=== PATIENT | male | born 1935 | race Caucasian/White ===

== ENCOUNTER 2019-07-21 11:03 | Inpatient (IN) | payer MEDICARE, OTHER ==
[~2019-07-21] VITALS: Ht 182.9 cm; Wt 95.2 kg
[~2019-07-21 11:03] MED LIST: ALLP100T PO; ASPI-875 PO; BUME0.5T5 PO; CLOP75TA PO; FURO20TA4 PO; HYDR-3583 PO; HYDR-3730 PO; IBUP-15 PO; KRIL1CAP18 PO; LEVO25TA2 PO; LISI-556 PO; METO-351 PO; MULT-35 PO; OMEG1CAP51 PO; PANT40SU PO; PRINIVIL; SIMV40TA4 PO; SMV20T PO; TMSL.4C; ZINC50TA49 PO
[2019-07-21] MEDS ORDERED: NS IV 500 ML 500 ML IV ONE (11:13)
--- NOTE | 2019-07-21 11:27 | ED Neurological Problem ---
General Chief Complaint: Neuro-Stroke Like Symptoms Stated Complaint: POSS STROKE Nursing Triage Note: Patient brought in by EMS with reports of R arm and R leg weakness and R sided facial droop with slurred speech. Per last known well time was 0230 on 07/21/2019 Nursing Sepsis Screen: No Definite Risk Source: patient, EMS Exam Limitations: clinical condition History of Present Illness Date Seen by Provider: Jul 21, 2019 Time Seen by Provider: 11:03 Initial Comments Here from home with report of concerns of stroke per the . Apparently he has right arm and leg weakness and difficulty with speech. Last known well time was 2:30 this morning when the states that he was speaking to her. Apparently had an episode of right-sided weakness last week and was seen in another facility and discharged home. Today, EMS reports that he does have decreased movement of the right arm and leg. She has not said anything meaningful to them other than a yes. No obvious facial droop noted or reported. No report of nausea, vomiting or diarrhea. He is incontinent of urine does have brief.m significantly limited due to patient unable to give information. Timing/Duration: other (last known well time 0230. We'll sometime this morning with symptoms.) Severity: moderate Associated Symptoms: No nausea/vomiting Allergies and Home Medications Allergies Coded Allergies: Iodinated Contrast Media (Unverified Allergy, Intermediate, PAIN, 02/02/08) Home Medications Allopurinol 100 Mg Tablet, 100 MG PO DAILY, (Reported) Aspirin 81 Mg Tablet.dr, 81 MG PO DAILY, (Reported) Bumetanide 0.5 Mg Tablet, 0.5 MG PO DAILY, (Reported) Hydrocodone/Acetaminophen 1 Each Tablet, 1-2 EACH PO Q4H Prescribed by: ANURAG MACK on 06/17/16 1002 Krill/Om-3/Dha/Epa/Phospho/Ast 1 Each Capsule, 1 EACH PO DAILY, (Reported) Levothyroxine Sodium 25 Mcg Tablet, 25 MCG PO DAILY, (Reported) Metoprolol Succinate 25 Mg Tab.er.24h, 25 MG PO DAILY, (Reported) Multivitamin 1 Each Tablet, 1 EACH PO DAILY, (Reported) Patient Home Medication List Home Medication List Reviewed: Yes Review of Systems Review of Systems Constitutional: No chills, No fever; weakness Respiratory: no symptoms reported Cardiovascular: no symptoms reported Musculoskeletal: see HPI, muscle weakness; No neck pain Psychiatric/Neurological: See HPI, Cognitive Dysfunction Unable to complete review of systems due to her underlying medical problems and current situation. Past Jsjjkgt-Dtcpbx-Lxrjtv Hx Past Med/Social Hx: Reviewed Nursing Past Med/Soc Hx Patient Social History Alcohol Use: Denies Use Recreational Drug Use: No Recent Foreign Travel: No Contact w/Someone Who Travel: No Recent Infectious Disease Expo: No Recent Hopitalizations: Yes (PREVIOUSLY LISTED) Immunizations Up To Date Tetanus Booster (TDap): Unknown Date of Pneumonia Vaccine: Aug 27, 2015 Past Medical History Surgeries: Yes (BACK, HEMORROIDECTOMY, MANY SKIN CANCERS REMOVED, ESWL MULTIPLE) Respiratory: No Cardiac: Yes (STENT) Neurological: Yes Reproductive Disorders: No Sexually Transmitted Disease: No HIV/AIDS: No Kidney Stones Gastrointestinal: Yes Chronic Constipation Musculoskeletal: Yes Degenerate Disk Disease, Arthritis, Chronic Back Pain Endocrine: Yes Loss of Vision: Bilateral Hearing Impairment: Denies Cancer: Yes Skin Psychosocial: No Integumentary: Yes (MULTIPLE SKIN CANCERS) Blood Disorders: No Adverse Reaction/Blood Tranf: No Family Medical History Reviewed Nursing Family Hx Physical Exam Vital Signs Vital Signs - First Documented 07/21/19 11:07 Temp 36.4 Pulse 79 Resp 22 B/P (MAP) 101/56 (71) Pulse Ox 94 O2 Delivery Room Air Capillary Refill : Less Than 3 Seconds Height, Weight, BMI Height: 5'11.00" Weight: 231lbs. 3.0oz. 104.918255oc; 34.00 BMI Method: General Appearance: WD/WN, no apparent distress HEENT: PERRL/EOMI, pharynx normal Neck: full range of motion Respiratory: lungs clear, normal breath sounds Cardiovascular: regular rate, rhythm, no murmur Gastrointestinal: non tender, soft Back: no CVA tenderness Extremities: No pedal edema, No swelling; other (decreased movement apparently of the right arm and leg. He is able to hold the left arm. Exam is significantly limited due to patient's compliance and understanding.) Neurologic/Psychiatric: motor weakness (right upper and lower extremity), disoriented x 3 Coordination/Gait: other (does open mouth and follow finger movement with eyes in all quadrants. Does not follow other commands.) Motor/Sensory: weak motor strength RUE, weak motor strength RLE, other (is able to hold left arm up when placed up) Skin: normal color, warm/dry Focused Exam Lactate Level 07/21/19 11:20: Lactic Acid Level 1.46 Lactic Acid Level Laboratory Tests Test 07/21/19 11:20 Lactic Acid Level 1.46 MMOL/L (0.50-2.00) Progress/Results/Core Measures Results/Orders Lab Results Laboratory Tests Test 07/21/19 11:20 Range/Units White Blood Count 9.7 4.3-11.0 10^3/uL Red Blood Count 4.72 4.35-5.85 10^6/uL Hemoglobin 14.0 13.3-17.7 G/DL Hematocrit 43 40-54 % Mean Corpuscular Volume 90 80-99 FL Mean Corpuscular Hemoglobin 30 25-34 PG Mean Corpuscular Hemoglobin Concent 33 32-36 G/DL Red Cell Distribution Width 15.0 H 10.0-14.5 % Platelet Count 334 130-400 10^3/uL Mean Platelet Volume 9.8 7.4-10.4 FL Neutrophils (%) (Auto) 76 H 42-75 % Lymphocytes (%) (Auto) 17 12-44 % Monocytes (%) (Auto) 7 0-12 % Eosinophils (%) (Auto) 0 0-10 % Basophils (%) (Auto) 0 0-10 % Neutrophils # (Auto) 7.4 1.8-7.8 X 10^3 Lymphocytes # (Auto) 1.6 1.0-4.0 X 10^3 Monocytes # (Auto) 0.7 0.0-1.0 X 10^3 Eosinophils # (Auto) 0.0 0.0-0.3 10^3/uL Basophils # (Auto) 0.0 0.0-0.1 10^3/uL Prothrombin Time 13.1 12.2-14.7 SEC INR Comment 1.0 0.8-1.4 Activated Partial Thromboplast Time 21 L 24-35 SEC D-Dimer 1.64 H 0.00-0.49 UG/ML Sodium Level 136 135-145 MMOL/L Potassium Level 5.1 H 3.6-5.0 MMOL/L Chloride Level 105 98-107 MMOL/L Carbon Dioxide Level 20 L 21-32 MMOL/L Anion Gap 11 5-14 MMOL/L Blood Urea Nitrogen 15 7-18 MG/DL Creatinine 1.41 H 0.60-1.30 MG/DL Estimat Glomerular Filtration Rate 48 BUN/Creatinine Ratio 11 Glucose Level 99 70-105 MG/DL Lactic Acid Level 1.46 0.50-2.00 MMOL/L Calcium Level 8.9 8.5-10.1 MG/DL Corrected Calcium 9.5 8.5-10.1 MG/DL Total Bilirubin 0.5 0.1-1.0 MG/DL Aspartate Amino Transf (AST/SGOT) 22 5-34 U/L Alanine Aminotransferase (ALT/SGPT) 9 0-55 U/L Alkaline Phosphatase 118 40-136 U/L Troponin I < 0.028 <0.028 NG/ML Total Protein 6.4 6.4-8.2 GM/DL Albumin 3.2 3.2-4.5 GM/DL TSH Coles Testing 2.81 0.35-4.94 UIU/ML Smear Scan YES My Orders Orders - CHAD LI MD Cbc With Automated Diff (07/21/19 11:13) Protime With Inr (07/21/19 11:13) Partial Thromboplastin Time (07/21/19 11:13) Comprehensive Metabolic Panel (07/21/19 11:13) Fibrin Degradation Products (07/21/19 11:13) Troponin I (07/21/19 11:13) Ua Culture If Indicated (07/21/19 11:13) Chest 1 View, Ap/Pa Only (07/21/19 11:13) Catheter(Urinary) Insert & Ass 03,15 (07/21/19 11:13) Ekg Tracing (07/21/19 11:13) Nothing By Mouth (07/21/19 Dinner) Accucheck Stat ONCE (07/21/19 11:13) Ed Iv/Invasive Line Start (07/21/19 11:13) Ed Iv/Invasive Line Start (07/21/19 11:13) Vital Signs Stroke Patient Q15M (07/21/19 11:13) Ct Head Wo-R/O Stroke (07/21/19 11:13) O2 (07/21/19 11:13) Intake & Output 06,14,22 (07/21/19 11:13) Monitor-Rhythm Ecg Trace Only (07/21/19 11:13) Dysphagia Screening Tool (07/21/19 11:13) Lipid Panel (07/22/19 06:00) Lactic Acid Analyzer (07/21/19 11:13) Blood Culture (07/21/19 11:13) I-Stat Bedside Testing (07/21/19 11:13) Ns Iv 500 Ml (Sodium Chloride 0.9%) (07/21/19 11:13) Thyroid Analyzer (07/21/19 11:30) Medications Given in ED Current Medications Medications Dose Ordered Sig/Rupert Route Start Time Stop Time Status Last Admin Dose Admin Sodium Chloride 500 ml @ 0 mls/hr Q0M ONCE IV 07/21/19 11:13 07/21/19 11:16 DC 07/21/19 11:26 0 MLS/HR Vital Signs/I&O 07/21/19 11:07 Temp 36.4 Pulse 79 Resp 22 B/P (MAP) 101/56 (71) Pulse Ox 94 O2 Delivery Room Air Blood Pressure Mean: 71 Progress Progress Note : Progress Note Seen and evaluated. Stroke protocol initiated. I have added blood cultures and lactic acid is patient had blood pressure in the 90 systolic. No fever and no report of illness. He did have workup on Tuesday of this week (5 days ago) that apparently was negative for urinary tract infection. We will give normal saline 500 mL bolus. We are unable to do CT scan with contrast due to contrast allergy as well as elevated serum creatinine. reports she is having increasing difficulty at home with him and they are considering group home. Previously with Dr. Shukla but does not have a physician currently as he has closed his practice and left knee area. If he does get admitted to group home, she is considering local physician, likely Dr. Connell group. 1342: I did discuss the case with Dr. Burton. He accepts patient for admission, inpatient status. Patient clearly outside of the TPA window with last known well time at 2:30 AM. We will continue stroke evaluation given findings on CT of acute on chronic stroke in the left frontal region. Patient remains alert. He has not accomplished dysphagia screen. We're unable to fully elucidate stroke scale given his level of cooperation. I did discuss with the about his CODE STATUS and she states that he is DO NOT RESUSCITATE. She also does not think that they would pursue any heroic measures but admission and further evaluation with possibility of group home placement are reasonable for her. Admit, inpatient status. Initial ECG Impression Date: Jul 21, 2019 Initial ECG Impression Time: 11:11 Initial ECG Rate: 76 Initial ECG Rhythm: Normal Sinus Initial ECG Comparisson: Changed (424/13 without left anterior fascicular block.) Comment Sinus rhythm with first degree AV block. Left anterior fascicular block. Left axis deviation. No evidence of ST elevation NC. Interpreted by me. Diagnostic Imaging Diagonstic Imaging: CT Plain Films/CT/US/NM/MRI: head Comments NAME: SHAHZAD CALLEJAS [facility] REC#: [id number] PT STATUS: REG ER : 1935 PHYSICIAN: CHAD LI MD ADMIT DATE: 07/21/19/ER Signed Date of Exam: 07/21/19 CT HEAD WO-R/O STROKE PROCEDURE: CT head wo r/o stroke. TECHNIQUE: Multiple contiguous axial images were obtained through the brain without the use of intravenous contrast. Auto Exposure Controls were utilized during the CT exam to meet ALARA standards for radiation dose reduction. INDICATION: Right-sided weakness. Evaluate for stroke. History of prior stroke. COMPARISON: None. FINDINGS: An area of decreased attenuation with loss of tran-white matter differentiation is seen in the left anterior lateral frontal lobe. The ventricles and cortical sulci are prominent. No evidence of hemorrhage or mass. No midline shift. The basilar cisterns are patent. Retained secretions are seen in the right maxillary sinus with dense components. There is thickening of the bilateral maxillary sinus goodwin. The mastoid air cells are well pneumatized. The scalp and calvarium are intact. The globes and orbits are unremarkable. IMPRESSION: 1. Region of age indeterminant ischemic changes in the left anterolateral frontal lobe. This is favored to represent acute on chronic ischemia. Consider MRI brain to further evaluate. 2. Chronic sinusitis involving the maxillary sinuses. Findings were discussed with Dr. Chad Li at 12:06 p.m. on 07/21/[address] Fanny Kolb. Dictated by: Dictated on workstation # [id number] Dict: 07/21/19 1200 Trans: 07/21/19 1212 Interpreted by: FANNY KOLB DO Electronically signed by: FANNY KOLB DO 07/21/19 1212 Diagonstic Imaging: Xray Plain Films/CT/US/NM/MRI: chest Comments NAME: SHAHZAD CALLEJAS [facility] REC#: [id number] PT STATUS: REG ER : 1935 PHYSICIAN: CHAD LI MD ADMIT DATE: 07/21/19/ER Signed Date of Exam: 07/21/19 CHEST 1 VIEW, AP/PA ONLY Patient History: Right-sided weakness. Stroke.. Technique: Single frontal view of the chest Comparison: 01/24/2013 FINDINGS: No focal consolidation is seen. No large pleural effusion or pneumothorax is seen. The cardiomediastinal silhouette is normal in size and contour. No acute osseous abnormality is seen. IMPRESSION: 1. No acute pleuroparenchymal process. Dictated by: Dictated on workstation # [id number] Dict: 07/21/19 1212 Trans: 07/21/191212 Interpreted by: FANNY KOLB DO Electronically signed by: FANNY KOLB DO 07/21/19 1213 Departure Communication (Admissions) Time/Spoke to Admitting Phy: 13:42 Impression Primary Impression: Ischemic stroke of frontal lobe Disposition: ADMITTED INPATIENT Condition: Stable Admissions Decision to Admit Reason: Admit from ER (General) Decision to Admit/Date: Jul 21, 2019 Time/Decision to Admit Time: 13:42 Departure-Patient Inst. Referrals: JV SHUKLA MD (PCP/Family) Primary Care Physician CHAD LI MD Jul 21, 2019 11:26
[2019-07-21 11:30] LABS: BASOPHILS % (AUTO) 0 % (0-10); EOSINOPHILS % (AUTO) 0 % (0-10); HEMATOCRIT 43 % (40-54); LYMPHOCYTES # (AUTO) 1.6 X 10^3 (1.0-4.0); LYMPHOCYTES % (AUTO) 17 % (12-44); MEAN CORPUSCULAR HEMOGLOBIN 30 PG (25-34); MEAN CORPUSCULAR HGB CONC 33 G/DL (32-36); MEAN CORPUSCULAR VOLUME 90 FL (80-99); MEAN PLATELET VOLUME 9.8 FL (7.4-10.4); MONOCYTES # (AUTO) 0.7 X 10^3 (0.0-1.0); MONOCYTES % (AUTO) 7 % (0-12); NEUTROPHILS # (AUTO) 7.4 X 10^3 (1.8-7.8); NEUTROPHILS % (AUTO) 76 % (42-75); PLATELET COUNT 334 10^3/uL (130-400); WHITE BLOOD COUNT 9.7 10^3/uL (4.3-11.0)
[2019-07-21 11:45] LABS: PROTHROMBIN TIME PATIENT 13.1 SEC (12.2-14.7)
[2019-07-21 11:52] LABS: ALANINE AMINOTRANSFERASE 9 U/L (0-55); ALBUMIN 3.2 GM/DL (3.2-4.5); ALKALINE PHOSPHATASE 118 U/L (40-136); BILIRUBIN,TOTAL 0.5 MG/DL (0.1-1.0); BUN/CREATININE RATIO 11; CALCIUM 8.9 MG/DL (8.5-10.1); CARBON DIOXIDE 20 MMOL/L (21-32); CHLORIDE 105 MMOL/L (98-107); CREATININE SERUM 1.41 MG/DL (0.60-1.30); GFR ESTIMATED 48; GLUCOSE 99 MG/DL (70-105); POTASSIUM 5.1 MMOL/L (3.6-5.0); SODIUM 136 MMOL/L (135-145); TOTAL PROTEIN 6.4 GM/DL (6.4-8.2)
[2019-07-21 11:59] LABS: FIBRIN DEGRADATION PRODUCTS 1.64 UG/ML (0.00-0.49)
[2019-07-21 12:09] LABS: SMEAR SCAN COMMENT YES
--- NOTE | 2019-07-21 12:09 | Diagnostic Imaging Report ---
PROCEDURE: CT head wo r/o stroke. TECHNIQUE: Multiple contiguous axial images were obtained through the brain without the use of intravenous contrast. Auto Exposure Controls were utilized during the CT exam to meet ALARA standards for radiation dose reduction. INDICATION: Right-sided weakness. Evaluate for stroke. History of prior stroke. COMPARISON: None. FINDINGS: An area of decreased attenuation with loss of tran-white matter differentiation is seen in the left anterior lateral frontal lobe. The ventricles and cortical sulci are prominent. No evidence of hemorrhage or mass. No midline shift. The basilar cisterns are patent. Retained secretions are seen in the right maxillary sinus with dense components. There is thickening of the bilateral maxillary sinus goodwin. The mastoid air cells are well pneumatized. The scalp and calvarium are intact. The globes and orbits are unremarkable. IMPRESSION: 1. Region of age indeterminant ischemic changes in the left anterolateral frontal lobe. This is favored to represent acute on chronic ischemia. Consider MRI brain to further evaluate. 2. Chronic sinusitis involving the maxillary sinuses. Findings were discussed with Dr. Chad See at 12:06 p.m. on 07/21/[address] Keyur Kolb. Dictated by: Dictated on workstation # [id number]
--- NOTE | 2019-07-21 12:14 | Diagnostic Imaging Report ---
Patient History: Right-sided weakness. Stroke.. Technique: Single frontal view of the chest Comparison: 01/24/2013 FINDINGS: No focal consolidation is seen. No large pleural effusion or pneumothorax is seen. The cardiomediastinal silhouette is normal in size and contour. No acute osseous abnormality is seen. IMPRESSION: 1. No acute pleuroparenchymal process. Dictated by: Dictated on workstation # [id number]
--- NOTE | 2019-07-21 14:45 | NUR ---
SHAHZAD CALLEJAS admitted to room 413, with an admitting diagnosis of ISCHEMIC STROKE , on 07/21/19 from [facility] via [facility]ULANCE], accompanied by PERSONNEL AND . SHAHZAD CALLEJAS introduced to surroundings, call light, bed controls, phone, TV, temperature control, lights, meal times, smoking policy, visitor policy, side rail policy, bathrooms and showers.SHAHZAD CALLEJAS verbalizes understanding that [facility] is not responsible for the loss or damage to any personal effects or valuables that are kept in the patients posession during their hospitalization. The following Patient Care Plans were discussed with the PATIENT AND FAMILY: Discharge Planning, CARE PLAN,DIET, and PAIN. SHAHZAD CALELJAS verbalizes understanding of Interdisciplinary Patient Education.
--- NOTE | 2019-07-21 14:45 | NUR ---
PATIENT RECEIVED IN ROOM 415. REPORT GIVEN TO RN BY TONI RAYMUNDO ED
[2019-07-21] MEDS: ASPIRIN E.C. 325 MG (ECOTRIN) TABLET PO SCH (14:59)
[2019-07-21] MEDS ORDERED: ONDANSETRON 4 MG/2 ML (SDV) Z0FRAN IV PRN (15:00)
[2019-07-21] MEDS ORDERED: ACETAMINOPHEN 325 MG TABLET PO PRN (15:15)
[2019-07-21] MEDS: NS IV 1000 ML 1,000 ML IV SCH (15:34)
[2019-07-21 16:00] VITALS: BP 146/93
[2019-07-21 16:07] VITALS: BP 130/82
[2019-07-21] MEDS ORDERED: RT-ALBUTEROL SULF 2.5 MG/3 ML PRE-MIX VIAL INH PRN (16:30)
[2019-07-21] MEDS ORDERED: FLU QUADRIvalent (5+ YOA) 2019-2020 (AFLURIA) 0.5 ML IM ONE (17:00)
[2019-07-21 17:13] VITALS: BP 146/93
[2019-07-21] MEDS ORDERED: hydrALAZINE (APESOLINE) 20 MG/ML VIAL IV PRN (19:00)
[2019-07-21 19:31] VITALS: BP 118/80
[2019-07-21] MEDS: ENOXAPARIN 40 MG/0.4 ML (LOVENOX) SYR SC SCH (23:28)
[2019-07-22] VITALS: BP 141/80
[2019-07-22 03:57] VITALS: BP 105/70
[2019-07-22 06:31] LABS: BASOPHILS % (AUTO) 0 % (0-10); EOSINOPHILS % (AUTO) 0 % (0-10); HEMATOCRIT 43 % (40-54); HEMOGLOBIN 13.8 G/DL (13.3-17.7); LYMPHOCYTES # (AUTO) 1.4 X 10^3 (1.0-4.0); LYMPHOCYTES % (AUTO) 10 % (12-44); MEAN CORPUSCULAR HEMOGLOBIN 29 PG (25-34); MEAN CORPUSCULAR HGB CONC 33 G/DL (32-36); MEAN CORPUSCULAR VOLUME 90 FL (80-99); MEAN PLATELET VOLUME 9.7 FL (7.4-10.4); MONOCYTES # (AUTO) 1.2 X 10^3 (0.0-1.0); MONOCYTES % (AUTO) 9 % (0-12); NEUTROPHILS # (AUTO) 10.8 X 10^3 (1.8-7.8); NEUTROPHILS % (AUTO) 81 % (42-75); PLATELET COUNT 330 10^3/uL (130-400); RED CELL DISTRIBUTION WIDTH 14.5 % (10.0-14.5); WHITE BLOOD COUNT 13.4 10^3/uL (4.3-11.0)
[2019-07-22 06:51] LABS: ALBUMIN 3.1 GM/DL (3.2-4.5); BILIRUBIN,TOTAL 0.6 MG/DL (0.1-1.0); CALCIUM 9.1 MG/DL (8.5-10.1); CREATININE SERUM 1.36 MG/DL (0.60-1.30); POTASSIUM 4.8 MMOL/L (3.6-5.0); TOTAL PROTEIN 6.2 GM/DL (6.4-8.2)
[2019-07-22] MEDS: ASPIRIN E.C. 325 MG (ECOTRIN) TABLET PO SCH ×2 (08:18→16:16)
[2019-07-22] MEDS: NS IV 1000 ML 1,000 ML IV SCH (12:17)
--- NOTE | 2019-07-22 13:13 | History & Physical-Hospitalist ---
History of Present Illness HPI/Chief Complaint Dave Ashley is an 84-year-old male with past medical history of frontal CVA who presented with weakness. Due to his clinical condition he is unable to provide an accurate history. His and children are present to assist. His states that he was in his normal state of health a couple weeks ago. He then began having difficulty getting around and was feeling more weak. He was evaluated in an outside emergency room and discharged. He became more weak over the past 24 hours and he was brought to the emergency room. He was also very lethargic and minimally responsive at that time. Evaluation in the emergency room determined that he had an acute ischemic stroke in the same region as his previous stroke. Source: patient, family Exam Limitations: clinical condition Date Seen 07/22/19 Time Seen by a Provider: 11:30 Attending Physician Arely Collado MD PCP No,Local Physician Referring Physician Date of Admission Jul 21, 2019 at 13:57 Home Medications & Allergies Home Medications Reviewed patient Home Medication Reconciliation performed by pharmacy medication reconciliations soils technician and/or nursing. Patients Allergies have been reviewed. Allergies Allergies Coded Allergies Iodinated Contrast Media (Unverified Allergy, Intermediate, PAIN, 02/02/08) Past Icsllaq-Esqbcw-Znrmno Hx Past Med/Social Hx: Reviewed Nursing Past Med/Soc Hx Patient Social History Alcohol Use: Denies Use Recreational Drug Use: No Smoking Status: Never a Smoker Physical Abuse Screen: No Sexual Abuse: No Recent Foreign Travel: No Contact w/other who traveled: No Recent Hopitalizations: No Recent Infectious Disease Expo: No Immunizations Up To Date Tetanus Booster (TDap): Unknown Pediatric: No Date of Pneumonia Vaccine: Jul 21, 2017 Seasonal Allergies Seasonal Allergies: No Past Medical History Currently Using CPAP: No Currently Using BIPAP: No Reproductive: No Sexually Transmitted Disease: No HIV/AIDS: No Genitourinary: Prostate Problems Gastrointestinal: Chronic Constipation Musculoskeletal: Gout Loss of Vision: Bilateral Hearing Impairment: Hard of Hearing Cancer: Skin Did You Recieve Any Treatments: Yes What Type of Treatment Did You: Surgical Intervention History of Blood Disorders: No Adverse Reaction to Blood Hwang: No Family History Reviewed Nursing Family Hx Cardiovascular disease 19 FATHER, Onset:60 years & older G8 BROTHER, Onset:40's - 50 Colon cancer 19 MOTHER, Onset:60 years & older Review of Systems Constitutional: see HPI, weakness Physical Exam Physical Exam Vital Signs Vital Signs - First Documented 07/21/19 11:07 Temp 36.4 Pulse 79 Resp 22 B/P (MAP) 101/56 (71) Pulse Ox 94 O2 Delivery Room Air Capillary Refill : Less Than 3 SecondsLess Than 3 Seconds Height, Weight, BMI Height: 5'11.00" Weight: 231lbs. 3.0oz. 104.862169mp; 28.45 BMI Method: General Appearance: No Apparent Distress, WD/WN, Obese HEENT: PERRL/EOMI, Pharynx Normal Neck: Normal Inspection, Supple Respiratory: Lungs Clear, Normal Breath Sounds, No Respiratory Distress Cardiovascular: Regular Rate, Rhythm, No Edema, No Murmur Gastrointestinal: Normal Bowel Sounds, Non Tender, Soft Neurologic/Psychiatric: Alert, Disoriented, Motor Weakness, Other (dysphasia) Skin: Normal Color, Warm/Dry Results Results/Procedures Labs Laboratory Tests 07/21/19 11:20 07/22/19 05:50 Patient resulted labs reviewed. Imaging: Reviewed Imaging Report Assessment/Plan Admission Diagnosis Acute ischemic stroke Admission Status: Inpatient Order (span 2 midnights) Reason for Inpatient Admission: Acute ischemic stroke requiring further evaluation and therapies Assessment and Plan Acute ischemic stroke of the frontal lobe History of cerebrovascular accident Hyperlipidemia CT head revealed acute on chronic ischemic stroke Outside window for TPA Continue aspirin Begin statin Consider TTE and carotid ultrasound tomorrow Palliative consult tomorrow PT/OT/ST instructional support services director consult for placement CKD Creatinine appears to be near baseline Continue to monitor DVT prophylaxis: Lovenox Diagnosis/Problems Diagnosis/Problems (1) Ischemic stroke of frontal lobe Status: Acute (2) History of cerebrovascular accident Status: Chronic (3) CKD (chronic kidney disease) Status: Chronic (4) HLD (hyperlipidemia) Status: Chronic (5) Leukocytosis Status: Acute Qualifiers: Leukocytosis type: leukemoid reaction Qualified Codes: D72.823 - Leukemoid reaction Clinical Quality Measures DVT/VTE Risk/Contraindication: Risk Factor Score Per Nursin RFS Level Per Nursing on Admit: 4+=Very High Stroke: Date of last known well: Jul 16, 2019 ARELY COLLADO MD Jul 22, 2019 13:13
[2019-07-22] MEDS ORDERED: BISACODYL 10 MG SUPP (DULCOLAX) PR PRN (13:15)
[2019-07-22] MEDS ORDERED: ONDANSETRON 4 MG (ZOFRAN) ORAL DISSOLVE TAB PO PRN (13:15)
[2019-07-22] MEDS ORDERED: MELATONIN 3 MG TABLET PO PRN (13:15)
[2019-07-22] MEDS ORDERED: POLYETHYLENE GLYCOL 17 GM (MIRALAX) PACK PO PRN (13:15)
[2019-07-22 16:00] VITALS: BP 131/88
--- NOTE | 2019-07-22 16:18 | NUR ---
PT WAS CAUGHT UP ON ORAL MEDS AFTER DYSPHAGIA SCREENING WAS DONE
[2019-07-22 20:00] VITALS: BP 140/88
[2019-07-22] MEDS: SENNA W/DOCUSATE (SENOKOT S) TABLET PO SCH ×2 (20:28→20:35)
[2019-07-22] MEDS: DOCUSATE SODIUM 100 MG (COLACE) CAP PO SCH ×2 (20:29→20:35)
[2019-07-22] MEDS: ENOXAPARIN 40 MG/0.4 ML (LOVENOX) SYR SC SCH (20:29)
[2019-07-22] MEDS: NYSTATIN OINTMENT 30 GM TUBE TOP SCH (20:29)
[2019-07-22 23:45] VITALS: BP 122/84
[2019-07-23 04:00] VITALS: BP 141/84
[2019-07-23] MEDS: LEVOTHYROXINE 25 MCG (LEVOTHROID) TAB PO SCH (05:43)
[2019-07-23] MEDS: NS IV 1000 ML 1,000 ML IV SCH (07:52)
[2019-07-23 08:27] VITALS: BP_SYST 110; BP_SYST 121; BP_DIAS 60; BP_DIAS 76
[2019-07-23] MEDS: SENNA W/DOCUSATE (SENOKOT S) TABLET PO SCH ×2 (08:47→23:30)
[2019-07-23] MEDS: ASPIRIN E.C. 325 MG (ECOTRIN) TABLET PO SCH (08:47)
[2019-07-23] MEDS: DOCUSATE SODIUM 100 MG (COLACE) CAP PO SCH ×2 (08:52→23:28)
--- NOTE | 2019-07-23 08:53 | NUR ---
PATIENT SPIT COLACE OUT.
[2019-07-23] MEDS: NYSTATIN OINTMENT 30 GM TUBE TOP SCH ×2 (09:18→23:28)
--- NOTE | 2019-07-23 10:00 | Physical Therapy Evaluation ---
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 Reviewed History: Yes Social History unknown at this time; pt unable to verbalize and no family present. Prior Prior Level of Function SCALE: Activities may be completed with or without assistive devices. 4-Zyjdmsgsid-wxfnpfp completes the activity by him/herself with no assistance from a helper. 5-Set-up or Clean-up Assistance-helper sets up or cleans up; patient completes activity. [place] assists only prior to or following the activity. 4-Supervision or Touching Assistance-helper provides verbal cues and/or touching/steadying and/or contact guard assistance as patient completes activity. Assistance may be provided throughout the activity or intermittently. 3-Partial/Moderate Assistance-helper does LESS THAN HALF the effort. [place] lifts, holds or supports trunk or limbs, but provides less than half the effort. 2-Substantial/Maximal Assistance-helper does MORE THAN HALF the effort. [place] lifts or holds trunk or limbs and provides more than half the effort. 9-Sxvenjsei-etxgoz does ALL the effort. Patient does none of the effort to complete the activity. Or, the assistance of 2 or more helpers is required for the patient to complete the activity. If activity was not attempted, code reason: 7-Patient Refused. 9-Not Applicable-not attempted and the patient did not perform the activity before the current illness, exacerbation or injury. 10-Not Attempted due to Environmental Limitations-(lack of equipment, weather restraints, etc.). 88-Not Attempted due to Medical Conditions or Safety Concerns. unknown PT Evaluation-Current Subjective Pt does not verbalize except to grunt a few times; he does make eye contact; follows cues 50% of the time; he was cooperative and allowed activity Objective Attachments: IV ROM/Strength ROM Lower Extremities WFL AAROM Strength Lower Extremities functional to stand but unable to specifically test Integumentary/Posture Integumentary pt has a bandage on low back. refer to nursing notes for full assessment. Posture symmetrical Neuromuscular (Tone, Coordination, Reflexes) unable to fully assess at this time Sensory Vision: Functional Hearing: Functional Transfers Roll Left to Right (QC): 2 Sit to Lying (QC): 2 Lying to Sitting/Side of Bed(Q: 2 Sit to Stand (QC): 2 assist o f 2 to transfer supine to/from sit; nel tof 2 to stand using a FWW. dependent for scooting in bed; pt does not initiate activity and has some difficulty following verbal cues but does follow tactile cues and able to participate with transers and standing. In standing, lacks full hip extension, difficulty keeping right hand on the walker; stood for 10-15 seconds x 2 with assist of 2 for safety. Balance Sitting Static: Fair Sitting Dynamic: Fair Standing Static: Poor Standing Dynamic: Poor Treatment Transfer to sit EOB; sat EOB several minutes; pt tends to lean left but does not fall over; nor does he right himself. Follows tactile cues for sit to stand activity. Pt in bed post treatment with heels elevated; right arm supported; bed alarm activated and needs met. . Assessment/Needs Post CVA with right side affected. Pt does not verbalize but does make eye contact; limited ability to follow verbal cues but does follow tactile cues and allows PT eval and follows treatment. Pt will benefit from skilled PT to address functional mobility and progress activity as he is able. Rehab Potential: Guarded PT Senior Living Goals Senior Living Goals PT Pattern Changer Goals Time Frame: Jul 30, 2019 Sit to Lying (QC): 3 Lying-Sitting on Side/Bed(QC): 3 Sit to Stand (QC): 3 Roll Left to Right (QC): 3 Chair/Dol-sa-Kguuf Xfer(QC): 3 Walk 10 feet (QC): 3 Walk 50ft with 2 Turns (QC): 3 Gait Assistive Device: FWW PT Plan Problem List Problem List: Activity Tolerance, Functional Strength, Safety, Balance, Gait, Transfer, Bed Mobility Treatment/Plan Treatment Plan: Continue Plan of Care Treatment Plan: Bed Mobility, Education, Functional Activity Jennifer, Functional Strength, Gait, Safety, Therapeutic Exercise, Transfers Treatment Duration: Jul 30, 2019 Frequency: 6 times per week Estimated Hrs Per Day: .5 hour per day Patient and/or Family Agrees t: Yes Safety Risks/Education Patient Education: Safety Issues Teaching Recipient: Patient Teaching Methods: Demonstration Response to Teaching: Reinforcement Needed Discharge Recommendations Therapy Discharge Recommendati: Post Acute PT Time/GCodes Time In: 915 Time Out: 940 Total Billed Treatment Time: 25 Total Billed Treatment visit EVM 15 FA 10 VICTOR MANUEL BROWN PT Jul 23, 2019 10:00
--- NOTE | 2019-07-23 10:02 | Occupational Therapy Eval ---
OT Evaluation-General/PLF Medical Diagnosis Admission Date Jul 21, 2019 at 13:57 Medical Diagnosis: Acute ischemic stroke of frontal lobe Onset Date: Jul 21, 2019 Therapy Diagnosis Therapy Diagnosis: impaired ADLs and functional mobility Height/Weight Height (Feet): 5 Height (Inches): 11.00 Weight (Pounds): 231 Weight (Ounces): 3.0 Precautions Precautions/Isolations: Aspiration, Fall Prevention, Standard Precautions Safety Interventions: Bed Exit Alarm, Reorient-PRN Referral Physician: Josephine Referral Reason: Activity Tolerance, Self Care, Evaluation/Treatment, Strengthening/ROM Medical History Pertinent Medical History: CVA Additional Medical History hyperlipidemia, chronic kidney disease, leukocytosis Current History Per H&P: "Dave Ashley is an 84-year-old male with past medical history of frontal CVA who presented with weakness. Due to his clinical condition he is unable to provide an accurate history. His and children are present to assist. His states that he was in his normal state of health a couple weeks ago. He then began having difficulty getting around and was feeling more weak. He was evaluated in an outside emergency room and discharged. He became more weak over the past 24 hours and he was brought to the emergency room. He was also very lethargic and minimally responsive at that time. Evaluation in the emergency room determined that he had an acute ischemic stroke in the same region as his previous stroke." Reviewed History: Yes Social History unknown ADL-Prior Level of Function SCALE: Activities may be completed with or without assistive devices. 1-Motkhywjil-bwsesbs completes the activity by him/herself with no assistance from a helper. 5-Set-up or Clean-up Assistance-helper sets up or cleans up; patient completes activity. [place] assists only prior to or following the activity. 4-Supervision or Touching Assistance-helper provides verbal cues and/or touching/steadying and/or contact guard assistance as patient completes activity. Assistance may be provided throughout the activity or intermittently. 3-Partial/Moderate Assistance-helper does LESS THAN HALF the effort. [place] lifts, holds or supports trunk or limbs, but provides less than half the effort. 2-Substantial/Maximal Assistance-helper does MORE THAN HALF the effort. [place] lifts or holds trunk or limbs and provides more than half the effort. 1-Vldevgsyw-maeazv does ALL the effort. Patient does none of the effort to complete the activity. Or, the assistance of 2 or more helpers is required for the patient to complete the activity. If activity was not attempted, code reason: 7-Patient Refused. 9-Not Applicable-not attempted and the patient did not perform the activity before the current illness, exacerbation or injury. 10-Not Attempted due to Environmental Limitations-(lack of equipment, weather restraints, etc.). 88-Not Attempted due to Medical Conditions or Safety Concerns. ADL PLOF Comments unknown OT Current Status Subjective Pt laying in bed at start of session. OT explained game plan to pt, pt nodded in agreement. Pt unable to verbalize pain this session. Mental Status/Objective Patient Orientation: Unable to Assess OT repeated questions/instructions multiple times with verbal and tactile cues. Pt would nod in agreement, or state simple words to answer questions/verbalize understanding. Attachments: IV, SCD's Current Upper Extremity ROM RUE flaccid, PROM WFL LUE - pt able to flex shoulder to approximately 160 degrees with OT guiding pt's arms in the correct movement secondary to pt's difficulty understanding inst ruction. Pt able to lightly squeeze left hand with tactile cue from OT. Upper Extremity Coordination unable to assess secondary to aphasia and flaccidity in RUE. Upper Extremity Sensation unable to assess secondary to aphasia Upper Extremity Strength RUE 0/5 MMT LUE 2+/5 MMT ADL-Treatment Oral Hygiene (QC): 2 (OT placed toothbrush with toothpaste in pt's LUE. With prompting and demo of task, pt was able to bring toothbrush to his mouth. Pt then grinded his teeth against the toothbrush, he did not move LUE in a "brushing" motion. OT assisted pt with completing task.) Other Treatments Throughout session, pt required max verbal/tactile cues in order to understand instruction/questions. Pt stated simple words and grunted/nodded in order to communicate with OT. Pt able to raise LUE into shoulder flexion when guided by OT. OT set up oral hygiene at bed level, assisting pt with completing task. With set-up and tactile cues, pt was able to use wet washcloth to wipe his mouth. Post OT session, pt laying in bed, call light positioned on pt's left side, all needs met. Education OT Patient Education: Correct positioning, Modified ADL techniques, Progress toward Goal/Update tx plan, Purpose of tx/functional activities Teaching Recipient: Patient Teaching Methods: Demonstration, Discussion Response to Teaching: Reinforcement Needed OT Short Term Goals Short Term Goals Time Frame: Aug 03, 2019 Upper Body Dressing(FIM): 2 Lower Body Dressing(FIM): 2 Toileting(FIM): 2 1=Demonstrate adherence to instructed precautions during ADL tasks. 2=Patient will verbalize/demonstrate understanding of assistive devices/modifications for ADL. 3=Patient will improve strength/tolerance for activity to enable patient to p erform ADL's. OT Nursing Instructor Goals Long-Term Goals Time Frame: Aug 17, 2019 Oral Hygiene (QC): 3 Upper Body Dressing (QC): 3 Lower Body Dressing (QC): 3 On/Off Footwear (QC): 3 Additional Goals: 1-Demonstrate ADL Tasks, 2-Verbalize Understanding, 3- ImproveStrength/Jennifer 1=Demonstrate adherence to instructed precautions during ADL tasks. 2=Patient will verbalize/demonstrate understanding of assistive devices/modifications for ADL. 3=Patient will improve strength/tolerance for activity to enable patient to perform ADL's. OT Education/Plan Problem List/Assessment Assessment: Decreased Activ Tolerance, Decreased UE Strength, Impaired Cognition, Impaired Coordination, Impaired Funct Balance, Impaired I ADL's, Impaired Self-Care Skills, Restricted Funct UE ROM Discharge Recommendations Plan/Recommendations: Continue POC Therapy Discharge Recommendati: Post Acute OT Treatment Plan/Plan of Care Treatment,Training & Education: Yes Patient would benefit from OT for education, treatment and training to promote independence in ADL's, mobility, safety and/or upper extremity function for ADL's. Plan of Care: ADL Retraining, Caregiver Training, Cognitive Retraining, Functional Mobility, UE Funct Exercise/Act Treatment Duration: Aug 17, 2019 Frequency: 5 times per week Estimated Hrs Per Day: .25 hour per day Agreement: Yes Rehab Potential: Guarded Time/GCodes Start Time: 09:43 Stop Time: 09:53 Total Time Billed (hr/min): 10 Billed Treatment Time 1, EVM [id number] MAURICE ESTEVEZ OT Jul 23, 2019 10:02
[2019-07-23] MEDS ORDERED: ASPI-586 PO (10:59)
[2019-07-23] MEDS ORDERED: METO-395 PO (10:59)
[2019-07-23] MEDS ORDERED: DOCU-143 PO (10:59)
[2019-07-23] MEDS ORDERED: ALLO100T PO (10:59)
[2019-07-23] MEDS ORDERED: LEVO50TA6 PO (10:59)
[2019-07-23] MEDS ORDERED: NYST15CR TD (11:01)
--- NOTE | 2019-07-23 11:01 | NUR ---
SPOKE WITH PT (HE COULDNT COMMUNICATE) AND SHE BROUGHT IN HIS PILL BOTTLES- I ALSO WENT THRU THE EXT MED HISTORY TO COMPLETE THE MED REC. WAS ABLE TO TELL ME HOW HE TOOK ALL HIS MEDS AND THAT MATCHED THE EXT MED HISTORY. BUMETANIDE: DIRECTIONS ON THE BOTTLE ARE 1 TAB ON SUN, MON,WED,AND FRI AND 2 TABS ALL OTHER DAYS OTC MEDS: ASPIRIN 81M DAILY
[2019-07-23 12:00] VITALS: BP 103/62
--- NOTE | 2019-07-23 12:12 | Progress Note - Hospitalist ---
Subjective HPI/CC On Admission Date Seen by Provider: Jul 23, 2019 Time Seen by Provider: 12:07 Dave Ashley is an 84-year-old male with past medical history of frontal CVA who presented with weakness. Due to his clinical condition he is unable to provide an accurate history. His and children are present to assist. His states that he was in his normal state of health a couple weeks ago. He then began having difficulty getting around and was feeling more weak. He was evaluated in an outside emergency room and discharged. He became more weak over the past 24 hours and he was brought to the emergency room. He was also very lethargic and minimally responsive at that time. Evaluation in the emergency room determined that he had an acute ischemic stroke in the same region as his previous stroke. Subjective/Events-last exam Pt is laying in MRI cart unable to tolerate MRI. Discussed with family that stroke has already been identified on CT and there is little added benefit of MRI. I offered Ativan for sedation to help get MRI but they declined. Discussed discharge planing and they are leaning towards SNF. Focused Exam Lactate Level 07/21/19 11:20: Lactic Acid Level 1.46 Objective Exam Vital Signs Vital Signs Date Time Temp Pulse Resp B/P (MAP) Pulse Ox O2 Delivery O2 Flow Rate FiO2 07/23/19 12:00 36.4 80 17 103/62 (76) 96 Room Air Capillary Refill : Less Than 3 SecondsLess Than 3 Seconds General Appearance: No Apparent Distress, Chronically ill Respiratory: Lungs Clear, No Respiratory Distress Cardiovascular: Regular Rate, Rhythm, No Murmur Neurologic/Psychiatric: Alert, Disoriented Results/Procedures Lab Patient resulted labs reviewed. Imaging: Reviewed Imaging Report Assessment/Plan Assessment and Plan Assess & Plan/Chief Complaint Acute ischemic stroke of the frontal lobe History of cerebrovascular accident Hyperlipidemia CT head revealed acute on chronic ischemic stroke Outside window for TPA, Family declines MRI Continue aspirin -- Begin statin PT/OT/ST information services manager consult for placement CKD Creatinine appears to be near baseline Continue to monitor DVT prophylaxis: Lovenox Diagnosis/Problems Diagnosis/Problems (1) Ischemic stroke of frontal lobe Status: Acute (2) HLD (hyperlipidemia) Status: Chronic (3) CKD (chronic kidney disease) Status: Chronic (4) History of cerebrovascular accident Status: Chronic Clinical Quality Measures DVT/VTE Risk/Contraindication: Risk Factor Score Per Nursin RFS Level Per Nursing on Admit: 4+=Very High Stroke: Date of last known well: Jul 16, 2019 NASIM BAUER MD Jul 23, 2019 12:12
[2019-07-23 12:45] VITALS: BP 103/62
[2019-07-23] MEDS ORDERED: FLU QUADRIvalent (5+ YOA) 2019-2020 (AFLURIA) 0.5 ML IM ONE (13:28)
--- NOTE | 2019-07-23 13:50 | NUR ---
Pastoral care visit.
--- NOTE | 2019-07-23 14:28 | NUR ---
LEATHA/SS spoke with the patients family in regards to jail home facility placement. The family stated that they cannot take care of patient in the home and needs patient to go skilled. The family has talked with someone at [facility] and the family is considering them along with [facility]. LEATHA/SS suggested that the [facility] and [facility] to help make her decision. The patients family is going to tour the facilities either today or tomorrow morning and let us know. No other needs at this time. Will continue to follow. Addendum: 07/23/19 at 1440 by EMILY IVAN reviewed / approved
--- NOTE | 2019-07-23 15:14 | ST Dysphagia Evaluation ---
Speech Evaluation-General Medical Diagnosis Acute ischemic stroke of frontal lobe Onset Date: Jul 21, 2019 Therapy Diagnosis Therapy Diagnosis: Oropharyngeal Dysphagia Precautions Precautions: Aspiration Precautions/Isolations: Aspiration, Fall Prevention, Standard Precautions Referral Referring Physician: Dr. Burton Reason for Referral: Evaluation/Treatment Medical History Pertinent Medical History: CVA Reviewed History: Yes Social History Current Living Status: Spouse Speech PLF/Current-Dysphagia Prior Level of Function Patient is reported to have been in good health within the past two weeks. It is noted that he has had a previous CVA in the same area as this one. The patient lives at home with his . Subjective Patient was pleasant with the Bedside Dysphagia Evaluation Cognitive Status Patient Orientation: Person Patient is aphasic, difficult to assess level of orientation Oral Motor Skills Denture Type: Full- Upper & Lower Current Food Consistancy: Pureed, Thin Liquids Ability to Follow Directions: Fair Oral Expression Ability: Moderate Impairment Patient answers with one word responses. He does not always respond to questions or statements. Voice Voice Phonatory-Based Quality: Normal Voice Pitch: Normal Voice Loudness: Mildly Soft/Quiet Face Facial Symmetry: Symmetrical Oral-Facial Assessment Oral-Facial Dentition: Normal Labial Seal Description: Weak Smile: Poor Coordination Puff Cheeks: Reduced Strength Lingual Protrusion: Abnormal Lingual ROM: Abnormal Lingual Strength: Abnormal Volitional Dry Swallow: Yes Voluntary Cough: No Can Clear Throat Volitionally: No Dysphagia Evaluation Consistencies Presented: Thin Liquid, Mechanical Soft, Pureed Patient was able to chew and swallow the 1/2 tsp bite size of banana Oral phase was within functional range Pharyngeal Phase: Decreased A/P Bolus Transit, Delayed Swallow Pharyngeal phase is delayed with mechanical soft texture. Dietary Recommendations: Pureed Liquid Recommendations: Thin Swallowing Precautions: Alternate Liquids/Solids, Decreased Bolus 1/2 Tsp, Liquids from Straw, Small Bites and Sips, Sitting Upright 90 Degrees, Sitting 90 Degrees 30 Post Intake Dysphagia Evaluation Summary Patient is an 84 year old male who was brought to the ER by family due to a decline in function. The patient was admitted to the hospital due to a frontal CVA. This is his second one that was in the same region. Patient is aphasic and only speaks with one word responses when he does respond. The patient was placed on a puree diet with thin liquids prior to the BDE. Trial of mechanical soft (banana) was given with delay of A-P transfer and swallow noted. Patient will continue on Dysphagia I diet with thin liquids at this time. This information was given to his nurse and written on the white board in his room. Barriers to Learning Affects of his recent CVA Speech Short Term Goals Short Term Goals Short Term Goals 1) The patient will tolerate the least restrictive diet level without s/s of aspiration at 90% or greater with 10% cues as needed. 2) The patient/caregiver will utilize compensatory strategies as trained with 90% or greater with 10% cues as needed. Speech Correction Goals Detailer Goals Patient will maintain adequate nutrition/hydration via safe effective swallow. Speech-Plan Patient/Family Goals Patient/Family Goals: Patient's plans upon discharge are unknown at this time. Treatment Plan Speech Therapy Treatment Plan: Continue Plan of Care Patient will receive skilled ST for dysphagia. Treatment Duration: Jul 27, 2019 Frequency: 4 times per week Estimated Hrs Per Day: .25 hour per day Rehab Potential: Guarded Barriers to Learning: After affects of new onset CVA Pt/Family Agrees to Plan: Yes Safety Risks/Education Teaching Recipient: Patient Teaching Methods: Demonstration, Discussion Response to Teaching: Verbalize Understanding, Return Demonstration Education Topics Provided: Safety of oral intake and diet level Time Speech Therapy Time In: 08:15 Speech Therapy Time Out: 08:30 Total Billed Time: 15 Billed Treatment Time 1KENYETTA BETHANIA ST Jul 23, 2019 15:14
--- NOTE | 2019-07-23 15:40 | NUR ---
RD ASSESSMENT PMHx: CVA, gout, CA(skin), chronic constipation, HLD PT INTERACTION: Pt was awake, but uncommunicative during nutrition assessment. Note pt's present. states current appetite is pretty good and "he ate all of his breakfast." Note pt had previously been NPO. states pt has had no recent issues with n/v at this time. states pt is normally constipated, and his last BM was "probably last ." Note pt currently on bowel regiment of colace, senna, and miralax and his last BM 07/22 per chart review. states pt eats regular diet at home. states pt had recent 20# wt loss x6mon. Note unable to determine recent wt hx, per chart review. ABNORMAL NUTRITION-RELATED LAB VALUES: cr 1.36 (H); glu 110 (H); LD 145 (H); Pro 6.2 (L); alb 3.1 (L); HDL 34 (L) Est. kcal needs: 3773-0521 kcal (25-30 kcal/kg) Est. Pro needs: 95-114 g Pro (1.0-1.2 g Pro/kg) PES STATEMENT: Inadequate oral intake (NI-2.1) related to NPO status as evidenced by pt () interview INTERVENTION: Continue with current diet order of DYS1 Pureed diet. Add Ensure Enlive (vary) to meals BID. Provides 350 kcal and 20 g Pro per serving. MONITOR/EVALUATE: PO Intake; Plan of Care; Hydration Status; Weight Status; Lab Values Chitra Teresa, MS, RD, LD Ext. [phone]
[2019-07-23 16:38] VITALS: BP 112/69
[2019-07-23 20:46] VITALS: BP 120/72
[2019-07-23] MEDS: ENOXAPARIN 40 MG/0.4 ML (LOVENOX) SYR SC SCH (23:28)
[2019-07-24] VITALS (7 sets, daily range): BP systolic 90–132; BP diastolic 50–75
[2019-07-24] MEDS: NS IV 1000 ML 1,000 ML IV SCH ×2 (06:00→23:52)
[2019-07-24] MEDS: LEVOTHYROXINE 25 MCG (LEVOTHROID) TAB PO SCH (06:01)
[2019-07-24] MEDS: SENNA W/DOCUSATE (SENOKOT S) TABLET PO SCH ×2 (07:56→20:26)
[2019-07-24] MEDS: ASPIRIN E.C. 325 MG (ECOTRIN) TABLET PO SCH (07:56)
[2019-07-24] MEDS: DOCUSATE SODIUM 100 MG (COLACE) CAP PO SCH ×2 (07:56→20:26)
[2019-07-24] MEDS: NYSTATIN OINTMENT 30 GM TUBE TOP SCH ×2 (07:57→20:26)
--- NOTE | 2019-07-24 09:09 | NUR ---
[facility] called and accepted the patient for placement when he is able to discharge. Addendum: 07/24/19 at 1110 by EMILY IVAN John is reviewing this patient's information at 's request.
--- NOTE | 2019-07-24 09:50 | Physical Therapy Daily Note ---
PT Daily Note-Current Subjective Patient agrees to PT at this time. Patient is mainly non-verbal but appears to understand cues and directions for transfer. Pain Numeric Pain Scale: 0-No Pain Location: No Pain Reported Mental Status Patient Orientation: Non-Verbal/Aphasic Attachments: IV Transfers SCALE: Activities may be completed with or without assistive devices. 4-Afhjpnxxqq-rgwoyyi completes the activity by him/herself with no assistance from a helper. 5-Set-up or Clean-up Assistance-helper sets up or cleans up; patient completes activity. [place] assists only prior to or following the activity. 4-Supervision or Touching Assistance-helper provides verbal cues and/or touching/steadying and/or contact guard assistance as patient completes activity. Assistance may be provided throughout the activity or intermittently. 3-Partial/Moderate Assistance-helper does LESS THAN HALF the effort. [place] lifts, holds or supports trunk or limbs, but provides less than half the effort. 2-Substantial/Maximal Assistance-helper does MORE THAN HALF the effort. [place] lifts or holds trunk or limbs and provides more than half the effort. 5-Jghdakmhe-usnsfi does ALL the effort. Patient does none of the effort to complete the activity. Or, the assistance of 2 or more helpers is required for the patient to complete the activity. If activity was not attempted, code reason: 7-Patient Refused. 9-Not Applicable-not attempted and the patient did not perform the activity before the current illness, exacerbation or injury. 10-Not Attempted due to Environmental Limitations-(lack of equipment, weather restraints, etc.). 88-Not Attempted due to Medical Conditions or Safety Concerns. Sit to Stand (QC): 2 Chair/Rbl-rd-Lcgkw Xfer(QC): 2 Exercises Seated Therapy Exercises: Ankle pumps, Long arc quads, Hip flexion Seated Reps: 15 (Assist on all exercises) Assessment Patient was able to assist with LE movement during transfer from bed to chair. Patient performed seated LE exercises within limited ROM and max assistance from PT x 2 PT Longterm Goals Longterm Goals PT Longterm Goals Time Frame: Jul 30, 2019 Sit to Lying (QC): 3 Lying-Sitting on Side/Bed(QC): 3 Sit to Stand (QC): 3 Roll Left to Right (QC): 3 Chair/Jrx-dn-Jkvdd Xfer(QC): 3 Walk 10 feet (QC): 3 Walk 50ft with 2 Turns (QC): 3 Gait Assistive Device: FWW PT Plan Treatment/Plan Treatment Plan: Continue Plan of Care Treatment Plan: Bed Mobility, Education, Functional Activity Jennifer, Functional Strength, Gait, Safety, Therapeutic Exercise, Transfers Treatment Duration: Jul 30, 2019 Frequency: 6 times per week Estimated Hrs Per Day: .5 hour per day Patient and/or Family Agrees t: Yes Time/GCodes Time In: 918 Time Out: 928 Total Billed Treatment Time: 10 Total Billed Treatment 1 visit EX 10min SANTOS CARDONA PT Jul 24, 2019 09:50
--- NOTE | 2019-07-24 10:56 | Progress Note - Hospitalist ---
Subjective HPI/CC On Admission Date Seen by Provider: Jul 24, 2019 Time Seen by Provider: 10:53 Dave Ashley is an 84-year-old male with past medical history of frontal CVA who presented with weakness. Due to his clinical condition he is unable to provide an accurate history. His and children are present to assist. His states that he was in his normal state of health a couple weeks ago. He then began having difficulty getting around and was feeling more weak. He was evaluated in an outside emergency room and discharged. He became more weak over the past 24 hours and he was brought to the emergency room. He was also very lethargic and minimally responsive at that time. Evaluation in the emergency room determined that he had an acute ischemic stroke in the same region as his previous stroke. Subjective/Events-last exam Pt able to say a couple of words. Just finished breakfast. No complaints. Focused Exam Lactate Level 07/21/19 11:20: Lactic Acid Level 1.46 Objective Exam Vital Signs Vital Signs Date Time Temp Pulse Resp B/P (MAP) Pulse Ox O2 Delivery O2 Flow Rate FiO2 07/24/19 09:44 95 Room Air 07/24/19 09:44 36.0 87 07/24/19 08:00 24 108/74 (85) Capillary Refill : Less Than 3 SecondsLess Than 3 Seconds General Appearance: No Apparent Distress, Chronically ill Respiratory: Lungs Clear, No Respiratory Distress Cardiovascular: Regular Rate, Rhythm, No Murmur Gastrointestinal: Normal Bowel Sounds, Non Tender, Soft Neurologic/Psychiatric: Alert, Aphasia Results/Procedures Lab Patient resulted labs reviewed. Imaging: Reviewed Imaging Report Assessment/Plan Assessment and Plan Assess & Plan/Chief Complaint Acute ischemic stroke of the frontal lobe History of cerebrovascular accident Hyperlipidemia Aphasia CT head revealed acute on chronic ischemic stroke Outside window for TPA, Family declines MRI Continue aspirin, statin PT/OT/ST school services officer consult for placement - Family request information be sent to [facility] HTN - Well controlled - Continue Metoprolol CKD Creatinine appears to be near baseline Continue to monitor DVT prophylaxis: Lovenox Diagnosis/Problems Diagnosis/Problems (1) Ischemic stroke of frontal lobe Status: Acute (2) HLD (hyperlipidemia) Status: Chronic (3) CKD (chronic kidney disease) Status: Chronic (4) History of cerebrovascular accident Status: Chronic (5) Essential (primary) hypertension Status: Chronic Clinical Quality Measures DVT/VTE Risk/Contraindication: Risk Factor Score Per Nursin RFS Level Per Nursing on Admit: 4+=Very High Stroke: Date of last known well: Jul 16, 2019 NASIM BAUER MD Jul 24, 2019 10:56
--- NOTE | 2019-07-24 11:26 | Occupational Ther Daily Note ---
OT Current Status-Daily Note Subjective Pt sitting in recliner with eyes open. present in room. Pt's asked pt if he was would exercise with [place] and pt stated 'yes'. Pt did not verbalize rest of session. Pt would make eye contact. Mental Status/Objective Patient Orientation: Unable to Assess ADL-Treatment Therapy Code Descriptions/Definitions Functional [place] Measure: 0=Not Assessed/NA 4=Minimal Assistance 1=Total Assistance 5=Supervision or Setup 2=Maximal Assistance 6=Modified [place] 3=Moderate Assistance 7=Complete IndependenceSCALE: Activities may be completed with or without assistive devices. 8-Fzjnppbznz-rhaklbe completes the activity by him/herself with no assistance from a helper. 5-Set-up or Clean-up Assistance-helper sets up or cleans up; patient completes activity. [place] assists only prior to or following the activity. 4-Supervision or Touching Assistance-helper provides verbal cues and/or touching/steadying and/or contact guard assistance as patient completes activity. Assistance may be provided throughout the activity or intermittently. 3-Partial/Moderate Assistance-helper does LESS THAN HALF the effort. [place] lifts, holds or supports trunk or limbs, but provides less than half the effort. 2-Substantial/Maximal Assistance-helper does MORE THAN HALF the effort. [place] lifts or holds trunk or limbs and provides more than half the effort. 2-Dwzzxfjcj-znswva does ALL the effort. Patient does none of the effort to complete the activity. Or, the assistance of 2 or more helpers is required for the patient to complete the activity. If activity was not attempted, code reason: 7-Patient Refused. 9-Not Applicable-not attempted and the patient did not perform the activity before the current illness, exacerbation or injury. 10-Not Attempted due to Environmental Limitations-(lack of equipment, weather restraints, etc.). 88-Not Attempted due to Medical Conditions or Safety Concerns. Other Treatment L UE 1 exercise against gravity with AAROM for physical cues, pt unable to follow direction for UE exercises. PROM to L UE in all planes. Pt tight at end ranges. Slight R shldr subluxation noted. After therapy, pt sitting in recliner with present in room. All needs met in room. OT Short Term Goals Short Term Goals Time Frame: Aug 03, 2019 Upper Body Dressing(FIM): 2 Lower Body Dressing(FIM): 2 Toileting(FIM): 2 1=Demonstrate adherence to instructed precautions during ADL tasks. 2=Patient will verbalize/demonstrate understanding of assistive devices/modifications for ADL. 3=Patient will improve strength/tolerance for activity to enable patient to perform ADL's. OT Half-Way Goals Health Education Director Goals Time Frame: Aug 17, 2019 Oral Hygiene (QC): 3 Upper Body Dressing (QC): 3 Lower Body Dressing (QC): 3 On/Off Footwear (QC): 3 Additional Goals: 1-Demonstrate ADL Tasks, 2-Verbalize Understanding, 3- ImproveStrength/Jennifer 1=Demonstrate adherence to instructed precautions during ADL tasks. 2=Patient will verbalize/demonstrate understanding of assistive devices/modifications for ADL. 3=Patient will improve strength/tolerance for activity to enable patient to perform ADL's. OT Education/Plan Problem List/Assessment Assessment: Decreased Activ Tolerance, Decreased Safety Aware, Decreased UE Strength, Dependent Transfers, Impaired Bed Mobility, Impaired Cognition, Impaired Coordination, Impaired Funct Balance, Impaired I ADL's, Impaired Self- Care Skills, Restricted Funct UE ROM Discharge Recommendations Plan/Recommendations: Continue POC Treatment Plan/Plan of Care Patient would benefit from OT for education, treatment and training to promote independence in ADL's, mobility, safety and/or upper extremity function for ADL's. Plan of Care: ADL Retraining, Caregiver Training, Cognitive Retraining, Functional Mobility, UE Funct Exercise/Act Treatment Duration: Aug 17, 2019 Frequency: 5 times per week Estimated Hrs Per Day: .25 hour per day Agreement: Yes Rehab Potential: Guarded Time/GCodes Start Time: 11:10 Stop Time: 11:20 Total Time Billed (hr/min): 10 Billed Treatment Time 1 visit-EX 1 (10 min) VICTOR MANUEL [facility]BR[facility] Jul 24, 2019 11:26
--- NOTE | 2019-07-24 13:24 | NUR ---
CM/SS spoke with Brynn and multiple others on speaker phone about the patient's referral for placement. They wanted to know the patient and his family's plan as for Skilled vs Long-term, stated that I imagined if he were able to get to a point where he were able to return home with his 's care that would be their choice but that initially he would be there skilled to see if got to a point able to do that. They have to have a financial plan from the family should he go long-term care before they would consider accepting the patient. Discussed that the had been to their facility yesterday evening and also this morning and was unable to speak with anyone that could address that with her. Then spoke with the patient's and asked that she reach out with [facility] again, she stated she would.
--- NOTE | 2019-07-24 14:22 | Speech Therapy Daily Note ---
Speech Daily Progress Note Subjective Date Seen by Provider: Jul 24, 2019 Time Seen by Provider: 00:15 Patient was sitting up in bed eating his lunch with assistance. Objective Patient's caregiver utilized compensatory strategy for alternating food:drink at 2:1 with 90% accuracy given minimal cues. Assessment Assessment Current Status: Fair Progress Treatment Plan Continue Plan of Care Speech Short Term Goals Short Term Goals Short Term Goals 1) The patient will tolerate the least restrictive diet level without s/s of aspiration at 90% or greater with 10% cues as needed. 2) The patient/caregiver will utilize compensatory strategies as trained with 90% or greater with 10% cues as needed. Speech Eeg Technologist Goals Eeg Technologist Goals Patient will maintain adequate nutrition/hydration via safe effective swallow. Speech-Plan Patient/Family Goals Patient/Family Goals: Patient's family is visiting area SNF's to determine which one will be used upon discharge. Treatment Plan Speech Therapy Treatment Plan: Continue Plan of Care Patient will continue on current diet level of Dysphagia I. Treatment Duration: Jul 27, 2019 Frequency: 4 times per week Estimated Hrs Per Day: .25 hour per day Rehab Potential: Guarded Barriers to Learning: Affects of his second CVA Pt/Family Agrees to Plan: Yes Safety Risks/Education Teaching Recipient: Patient, Primary Caregiver Teaching Methods: Demonstration, Discussion Response to Teaching: Verbalize Understanding, Return Demonstration Education Topics Provided: Continued safety of oral intake. Time Speech Therapy Time In: 12:05 Speech Therapy Time Out: 12:20 Total Billed Time: 15 Billed Treatment Time 1, CARLOZ FATMATA Bradshaw Jul 24, 2019 14:22
--- NOTE | 2019-07-24 16:16 | NUR ---
Pt's says pt is inactive [employer].
[2019-07-24] MEDS: ENOXAPARIN 40 MG/0.4 ML (LOVENOX) SYR SC SCH (20:25)
[2019-07-25 00:26] VITALS: BP 106/79
[2019-07-25 04:00] VITALS: BP 110/76
[2019-07-25] MEDS: LEVOTHYROXINE 25 MCG (LEVOTHROID) TAB PO SCH (06:00)
[2019-07-25 08:00] VITALS: BP 110/75
--- NOTE | 2019-07-25 08:23 | NUR ---
patient is sitting in his chair and states he does not need anything, No distress was noted at this time
[2019-07-25] MEDS: SENNA W/DOCUSATE (SENOKOT S) TABLET PO SCH ×2 (08:52→21:17)
[2019-07-25] MEDS: ASPIRIN E.C. 325 MG (ECOTRIN) TABLET PO SCH (08:52)
[2019-07-25] MEDS: DOCUSATE SODIUM 100 MG (COLACE) CAP PO SCH ×2 (08:52→21:18)
[2019-07-25] MEDS: NYSTATIN OINTMENT 30 GM TUBE TOP SCH ×2 (08:52→21:19)
--- NOTE | 2019-07-25 09:14 | NUR ---
CM/SS spoke with Brynn at [facility] [place] they are still reviewing the patient, the patient's was supposed to check on their long-term insurance and then get back to Brynn. After Brynn has spoken to the again then she will contact this typewriter assembly and parts inspector about their acceptance of the patient for placement.
--- NOTE | 2019-07-25 09:48 | Physical Therapy Daily Note ---
PT Daily Note-Current Subjective Patient in recliner pre tx, is mostly non-verbal but can occasionally give a one word answer to questions, he states "no" when asked if he has pain. Appearance Patient in recliner post tx with nurse call, phone, tray, all needs met, legs elevated and on pillow. Mental Status Patient Orientation: Unable to Assess, Non-Verbal/Aphasic Transfers SCALE: Activities may be completed with or without assistive devices. 1-Jmhjozrskw-nldfurl completes the activity by him/herself with no assistance from a helper. 5-Set-up or Clean-up Assistance-helper sets up or cleans up; patient completes activity. [place] assists only prior to or following the activity. 4-Supervision or Touching Assistance-helper provides verbal cues and/or touching/steadying and/or contact guard assistance as patient completes activity. Assistance may be provided throughout the activity or intermittently. 3-Partial/Moderate Assistance-helper does LESS THAN HALF the effort. [place] lifts, holds or supports trunk or limbs, but provides less than half the effort. 2-Substantial/Maximal Assistance-helper does MORE THAN HALF the effort. [place] lifts or holds trunk or limbs and provides more than half the effort. 6-Njnztknbc-ggcnmt does ALL the effort. Patient does none of the effort to complete the activity. Or, the assistance of 2 or more helpers is required for the patient to complete the activity. If activity was not attempted, code reason: 7-Patient Refused. 9-Not Applicable-not attempted and the patient did not perform the activity before the current illness, exacerbation or injury. 10-Not Attempted due to Environmental Limitations-(lack of equipment, weather restraints, etc.). 88-Not Attempted due to Medical Conditions or Safety Concerns. Sit to Stand (QC): 2 Patient stood twice from recliner with max assist, he has slumped posture, flexed knees, only able to stand about 20 seconds. Exercises Seated Therapy Exercises: Long arc quads Seated Reps: 20 (2 sets of 10 with AAROM) Treatments LE exercise, standing Assessment Current Status: Poor Progress patient has a lot of trouble understanding and following directions PT Lieutenant Colonel Goals Residential Goals PT Lieutenant Colonel Goals Time Frame: Jul 30, 2019 Sit to Lying (QC): 3 Lying-Sitting on Side/Bed(QC): 3 Sit to Stand (QC): 3 Roll Left to Right (QC): 3 Chair/Xlb-qa-Cqrrm Xfer(QC): 3 Walk 10 feet (QC): 3 Walk 50ft with 2 Turns (QC): 3 Gait Assistive Device: FWW PT Plan Problem List Problem List: Activity Tolerance, Functional Strength, Safety, Balance, Gait, Transfer, Bed Mobility, ROM Treatment/Plan Treatment Plan: Continue Plan of Care Treatment Plan: Bed Mobility, Education, Functional Activity Jennifer, Functional Strength, Gait, Safety, Therapeutic Exercise, Transfers Treatment Duration: Jul 30, 2019 Frequency: 6 times per week Estimated Hrs Per Day: .5 hour per day Patient and/or Family Agrees t: Yes Safety Risks/Education Patient Education: Transfer Techniques, Correct Positioning, Safety Issues Teaching Recipient: Patient Teaching Methods: Demonstration, Discussion Response to Teaching: Reinforcement Needed Time/GCodes Time In: 32 Time Out: 09 Total Billed Treatment Time: 11 Total Billed Treatment 1 visit FA 11EDWIN CARRERA PT Jul 25, 2019 09:48
--- NOTE | 2019-07-25 10:39 | Progress Note - Hospitalist ---
Subjective HPI/CC On Admission Date Seen by Provider: Jul 25, 2019 Time Seen by Provider: 10:37 Dave Ashley is an 84-year-old male with past medical history of frontal CVA who presented with weakness. Due to his clinical condition he is unable to provide an accurate history. His and children are present to assist. His states that he was in his normal state of health a couple weeks ago. He then began having difficulty getting around and was feeling more weak. He was evaluated in an outside emergency room and discharged. He became more weak over the past 24 hours and he was brought to the emergency room. He was also very lethargic and minimally responsive at that time. Evaluation in the emergency room determined that he had an acute ischemic stroke in the same region as his previous stroke. Subjective/Events-last exam Pt remains nonverbal. Much more alert though. at bedside. Objective Exam Vital Signs Vital Signs Date Time Temp Pulse Resp B/P (MAP) Pulse Ox O2 Delivery O2 Flow Rate FiO2 07/25/19 08:20 96 Room Air 07/25/19 08:00 36.1 87 20 110/75 (87) Capillary Refill : Less Than 3 SecondsLess Than 3 Seconds General Appearance: No Apparent Distress, WD/WN, Chronically ill Respiratory: Lungs Clear Cardiovascular: Regular Rate, Rhythm, No Murmur Neurologic/Psychiatric: Alert Results/Procedures Lab Patient resulted labs reviewed. Imaging: Reviewed Imaging Report Assessment/Plan Assessment and Plan Assess & Plan/Chief Complaint Acute ischemic stroke of the frontal lobe History of cerebrovascular accident Hyperlipidemia Aphasia CT head revealed acute on chronic ischemic stroke Outside window for TPA, Family declines MRI Continue aspirin, statin Continue PT/OT/ST school services officer consult for placement - Family request information be sent to [facility], has been accepted and plan to DC tomorrow to [place] HTN - Well controlled - Continue Metoprolol CKD Creatinine at baseline Continue to monitor DVT prophylaxis: Lovenox Diagnosis/Problems Diagnosis/Problems (1) Ischemic stroke of frontal lobe Status: Acute (2) HLD (hyperlipidemia) Status: Chronic (3) CKD (chronic kidney disease) Status: Chronic (4) History of cerebrovascular accident Status: Chronic (5) Essential (primary) hypertension Status: Chronic Clinical Quality Measures DVT/VTE Risk/Contraindication: Risk Factor Score Per Nursin RFS Level Per Nursing on Admit: 4+=Very High Stroke: Date of last known well: Jul 16, 2019 NASIM BAUER MD Jul 25, 2019 10:39
--- NOTE | 2019-07-25 11:27 | NUR ---
CM/MONCHO visited with the patient and patients spouse to complete the Care Assessment. The Care Assessment was completed and signed. Will be sent to [facility] and [facility] tomorrow upon discharge 07/26/19. The patients is visiting [facility] to handle her grievances before arriving tomorrow. No other needs at this time. Addendum: 07/25/19 at 1135 by EMILY IVAN reviewed / approved
--- NOTE | 2019-07-25 13:08 | Occupational Ther Daily Note ---
OT Current Status-Daily Note Subjective No pain reported. Appearance Pt. is up in chair. Spouse by his side. Pt. alert. Mental Status/Objective Patient Orientation: Confused At times, pt. will say a one word answer, but often requires max cues or demonstration to participate. ADL-Treatment Therapy Code Descriptions/Definitions Functional [place] Measure: 0=Not Assessed/NA 4=Minimal Assistance 1=Total Assistance 5=Supervision or Setup 2=Maximal Assistance 6=Modified [place] 3=Moderate Assistance 7=Complete IndependenceSCALE: Activities may be completed with or without assistive devices. 0-Xtaciknqxq-cpmlije completes the activity by him/herself with no assistance from a helper. 5-Set-up or Clean-up Assistance-helper sets up or cleans up; patient completes activity. [place] assists only prior to or following the activity. 4-Supervision or Touching Assistance-helper provides verbal cues and/or touching/steadying and/or contact guard assistance as patient completes activity. Assistance may be provided throughout the activity or intermittently. 3-Partial/Moderate Assistance-helper does LESS THAN HALF the effort. [place] lifts, holds or supports trunk or limbs, but provides less than half the effort. 2-Substantial/Maximal Assistance-helper does MORE THAN HALF the effort. [place] lifts or holds trunk or limbs and provides more than half the effort. 6-Vaasudcgm-okchtk does ALL the effort. Patient does none of the effort to co mplete the activity. Or, the assistance of 2 or more helpers is required for the patient to complete the activity. If activity was not attempted, code reason: 7-Patient Refused. 9-Not Applicable-not attempted and the patient did not perform the activity before the current illness, exacerbation or injury. 10-Not Attempted due to Environmental Limitations-(lack of equipment, weather restraints, etc.). 88-Not Attempted due to Medical Conditions or Safety Concerns. Oral Hygiene (QC): 1 Lower Body Dressing (QC): 1 Other Treatment Pt. able to make eye contact with OT. Attempted to touch nose with right hand, with max cues. Is able to perform elbow flexion/extension actively and slowly with max cues. OT provides gentle PROM to all planes in right UE. Able to tolerate flexion and abduction to approximately 90% in shoulder. Did note tightness and tone in right UE overall. Pt. given warm washcloth and encouraged to wash face. Pt. perseverates on washing his nose. OT washes his face for him. Pt. is handed another warm washcloth and encouraged to wash his right hand. Pt. does not initiate the task and so OT places washcloth in right hand. Pt. puts his left hand on his right, and holds it there. OT washes hands for him. Pt. is unable to verbalize if he can feel pressure on his right hand. Pt. is able to nod when OT asks if he would like to brush his teeth. Pt. is handed a toothbrush with toothpaste on it. Pt. puts it to his nose. OT assists pt. with brushing his teeth. Pt. is unable to spit but is able to take a small drink. Pt. is asked if he needs to use the bathroom. Pt. shakes his head "no." All needs met in room. Education OT Patient Education: Correct positioning, Exercise program, Modified ADL techniques, Progress toward Goal/Update tx plan, Purpose of tx/functional ac tivities, Reviewed precautions, Rehab process Teaching Recipient: Patient Teaching Methods: Demonstration, Discussion Response to Teaching: Unable to Return Demonstration, Unable to Comprehend OT Short Term Goals Short Term Goals Time Frame: Aug 03, 2019 Upper Body Dressing(FIM): 2 Lower Body Dressing(FIM): 2 Toileting(FIM): 2 1=Demonstrate adherence to instructed precautions during ADL tasks. 2=Patient will verbalize/demonstrate understanding of assistive de vices/modifications for ADL. 3=Patient will improve strength/tolerance for activity to enable patient to perform ADL's. OT Green Hide Inspector Goals Green Hide Inspector Goals Time Frame: Aug 17, 2019 Oral Hygiene (QC): 3 Upper Body Dressing (QC): 3 Lower Body Dressing (QC): 3 On/Off Footwear (QC): 3 Additional Goals: 1-Demonstrate ADL Tasks, 2-Verbalize Understanding, 3-Imp roveStrength/Jennifer 1=Demonstrate adherence to instructed precautions during ADL tasks. 2=Patient will verbalize/demonstrate understanding of assistive devices/modifications for ADL. 3=Patient will improve strength/tolerance for activity to enable patient to perform ADL's. OT Education/Plan Problem List/Assessment Assessment: Decreased Activ Tolerance, Decreased UE Strength, Impaired Cognition, Impaired Coordination, Impaired I ADL's, Impaired Self-Care Skills, R estricted Funct UE ROM Discharge Recommendations Plan/Recommendations: Continue POC Therapy Discharge Recommendati: 24 Hour Supervision Treatment Plan/Plan of Care Treatment,Training & Education: Yes Patient would benefit from OT for education, treatment and training to promote independence in ADL's, mobility, safety and/or upper extremity function for ADL's. Plan of Care: ADL Retraining, Caregiver Training, Cognitive Retraining, Functional Mobility, UE Funct Exercise/Act Treatment Duration: Aug 17, 2019 Frequency: 5 times per week Estimated Hrs Per Day: .25 hour per day Agreement: Yes Rehab Potential: Guarded Time/GCodes Start Time: 11:00 Stop Time: 11:25 Total Time Billed (hr/min): 25 Billed Treatment Time 1, EX x 10minutes, ADL x 15minutes KAYLEE CHAIREZ OT Jul 25, 2019 13:08
[2019-07-25 16:55] VITALS: BP 105/71
[2019-07-25] MEDS: ENOXAPARIN 40 MG/0.4 ML (LOVENOX) SYR SC SCH (21:19)
[2019-07-26 00:30] VITALS: BP 165/72
[2019-07-26] MEDS: LEVOTHYROXINE 25 MCG (LEVOTHROID) TAB PO SCH (05:43)
[2019-07-26 08:00] VITALS: BP 92/63
--- NOTE | 2019-07-26 08:44 | Discharge Inst-Skilled Nursing ---
Discharge Inst-Skilled NF Reconcile Patient Problems Problems Reviewed?: Yes Chief Complaint Dave Ashley is an 84-year-old male with past medical history of frontal CVA who presented with weakness. Due to his clinical condition he is unable to provide an accurate history. His and children are present to assist. His states that he was in his normal state of health a couple weeks ago. He then began having difficulty getting around and was feeling more weak. He was evaluated in an outside emergency room and discharged. He became more weak over the past 24 hours and he was brought to the emergency room. He was also very lethargic and minimally responsive at that time. Evaluation in the emergency room determined that he had an acute ischemic stroke in the same region as his previous stroke. Patient Instructions Patient Problems: Stroke, HTN, Hypothyroidism Consult/Follow Up/Orders Follow Up Appt.: With Physical Education Department Chair in next week. [facility] I certify that SNF services are required to be given on an inpatient basis b ecause of the above named patient's need for fdc care on a continuing basis for the conditions(s) for which he/she was receiving inpatient hospital services prior to his/her transfer to the SNF. [facility] Facility Order: Nursing Services, Pointer Machine Operator-Evaluate & Treat, Physical Therapy-Evaluate & Treat, Speech Language-Evaluate & Treat Oxygen Delivery Method: Room Air Discharge Diet: Other Diet (Pureed diet with thin liquids) Daily Activity as Tolerated: Yes Resuscitation Status: Do Not Resuscitate New & Resume Previous Orders Nasim Clark Jul 26, 2019 08:42 NASIM CLARK MD Jul 26, 2019 08:44
[2019-07-26] MEDS ORDERED: ATOR80TA76 PO (08:47)
[2019-07-26] MEDS ORDERED: METO-387 PO (08:47)
[2019-07-26] MEDS ORDERED: POLY17PO31 PO (08:47)
--- NOTE | 2019-07-26 08:48 | Discharge Summary ---
Diagnosis/Chief Complaint Date of Admission Jul 21, 2019 at 13:57 Date of Discharge Discharge Date: Jul 26, 2019 Admission Diagnosis Acute ischemic stroke Primary Care No,Local Physician Discharge Diagnosis (1) Ischemic stroke of frontal lobe Status: Acute (2) HLD (hyperlipidemia) Status: Chronic (3) CKD (chronic kidney disease) Status: Chronic (4) History of cerebrovascular accident Status: Chronic (5) Essential (primary) hypertension Status: Chronic Discharge Summary Discharge Physical Exam Allergies: Coded Allergies: Iodinated Contrast Media (Unverified Allergy, Intermediate, PAIN, 02/02/08) Vitals & I&Os Vital Signs Date Time Temp Pulse Resp B/P (MAP) Pulse Ox O2 Delivery O2 Flow Rate FiO2 07/26/19 11:10 36.4 98 22 92/63 94 Room Air General Appearance: No Apparent Distress, Chronically ill Respiratory: Lungs Clear, No Respiratory Distress Cardiovascular: Regular Rate, Rhythm, No Murmur Hospital Course Pt was admitted due to acute ischemic stroke seen on CT head. An MRI was ordered but he was unable to tolerate this and family elected not to pursue sedation for MRI. He was seen by PT/OT/TRAUMA MANAGER and was deemed and appropriate candidate for skilled placement and therapy. He was discharged in stable condition to [facility] for continued therapy. He is to follow up with their medical coding instructor Dr Rodgers to follow up this hospital stay. Labs (last 24 hrs) Microbiology 07/21/19 Blood Culture - Final, Complete No growth Patient resulted labs reviewed. Imaging: Reviewed Imaging Report Discussion & Recommendations Discharge Planning: >30 minutes discharge planning Discharge Home Medications: Active Scripts Active Atorvastatin Calcium 80 Mg Tablet 40 Mg PO HS Polyethylene Glycol 3350 17 Gm Powd.pack 17 Gm PO BID PRN Metoprolol Succinate 25 Mg Tab.er.24h 25 Mg PO DAILY Reported Nystatin 15 Gm Cream..g. 1 Applic TD BID Levothyroxine Sodium 50 Mcg Tablet 50 Mcg PO DAILY Aspir 81 (Aspirin) 81 Mg Tablet.dr 81 Mg PO 1800 Allopurinol 100 Mg Tablet 100 Mg PO DAILY Bumetanide 0.5 Mg Tablet 0.5 Mg PO DAILY Instructions to patient/family Please see electronic discharge instructions given to patient. Clinical Quality Measures DVT/VTE Risk/Contraindication: Risk Factor Score Per Nursin RFS Level Per Nursing on Admit: 4+=Very High Stroke: Date of last known well: Jul 16, 2019 Copy Copies To 1: CHONG RODGERS MD Problem Qualifiers (1) HLD (hyperlipidemia): Hyperlipidemia type: mixed hyperlipidemia Qualified Codes: E78.2 - Mixed hyperlipidemia (2) CKD (chronic kidney disease): Chronic kidney disease stage: stage 3 (moderate) Qualified Codes: N18.3 - Chronic kidney disease, stage 3 (moderate) NASIM BAUER MD Jul 26, 2019 08:48
[2019-07-26] MEDS: SENNA W/DOCUSATE (SENOKOT S) TABLET PO SCH (09:12)
[2019-07-26] MEDS: DOCUSATE SODIUM 100 MG (COLACE) CAP PO SCH (09:13)
[2019-07-26] MEDS: ASPIRIN E.C. 325 MG (ECOTRIN) TABLET PO SCH (09:13)
[2019-07-26] MEDS: NYSTATIN OINTMENT 30 GM TUBE TOP SCH (09:25)
--- NOTE | 2019-07-26 10:20 | NUR ---
CM/SS patient discharging this day. Discharge information sent to [facility], they will transport at 11am. Patient's and RN updated. CARE assessment sent to [facility] also.
[2019-07-26 11:10] VITALS: BP 92/63
--- NOTE | 2019-07-26 11:10 | NUR ---
SHAHZAD CALLEJAS demonstrates understanding of discharge instructions and accurately returns instructions upon questioning. Copy of Post-Discharge Instructions given to RUSLAN ( NURSE ) AT [facility]. SHAHZAD CALLEJAS is able to manage continuing needs after discharge WITH ASSISTANCE OF [facility]. Patients belongings returned to . Patient discharged from [facility] on 07/26/19 at 1110. SHAHZAD CALLEJAS left floor via W/C, accompanied by STAFF AND FAMILY PER AUTO.
== END 2019-07-26 11:10 | DRG 65 ==
LOC: EDUNIT# 11:03 → ER 11:04 → 4TH 13:57
PROVIDERS: ADMIT Internal Medicine; ATTEND Internal Medicine
DX: I63.9 Cerebral infarction, unspecified (principal); G81.91 Hemiplegia, unspecified affecting right dominant side; R47.02 Dysphasia; R29.810 Facial weakness; R47.01 Aphasia; I12.9 Hypertensive chronic kidney disease with stage 1 through stage 4 chronic kidney disease, or unspecified chronic kidney disease; N18.3 Chronic kidney disease, stage 3 (moderate); Z23 Encounter for immunization; Z66 Do not resuscitate; R53.83 Other fatigue; E78.2 Mixed hyperlipidemia; D72.823 Leukemoid reaction; R32 Unspecified urinary incontinence; M54.9 Dorsalgia, unspecified; M19.91 Primary osteoarthritis, unspecified site; K59.09 Other constipation; M10.9 Gout, unspecified; Z86.73 Personal history of transient ischemic attack (TIA), and cerebral infarction without residual deficits; Z95.5 Presence of coronary angioplasty implant and graft; Z85.828 Personal history of other malignant neoplasm of skin
CPT/HCPCS: 36415; 70450; 71045; 80053; 80061; 83605; 84443; 84484; 85025; 85379; 85610; 85730; 87040; 93005; 93041; 94760